=== PATIENT | female | born 1955 | race Two or more races ===

== ENCOUNTER 2018-11-28 09:53 | Emergency (ER) | payer OTHER | END 2018-11-28 12:30 | disposition home or self-care (01) | LOC: JERFT 09:53 ==

== ENCOUNTER 2019-01-28 09:09 | Emergency (ER) | payer OTHER | END 2019-01-28 12:40 | disposition home or self-care (01) | LOC: JER 09:09 ==

== ENCOUNTER 2019-02-22 10:05 | Day surgery (SDC) | payer OTHER ==
[2019-02-20 12:01] VITALS: BMI 22.8
[2019-02-22] MEDS ORDERED: MIDAZOLAM HCL 2 MG/2 ML SINGLE DOSE VIAL ONE (12:03)
[2019-02-22] MEDS ORDERED: BUPIVACAINE LIPOSOME/PF (EXPAREL) 266 MG/20 ML VIAL ONE (12:03)
--- NOTE | 2019-02-22 12:32 | OP ---
Operative Note - Note: Operative Date: 02/22/19 Pre-Operative Diagnosis: LEft knee arthrofibrosis Operation: LICHA left knee Post-Operative Diagnosis: Same as Pre-op Surgeon: Sergio Mayer Anesthesiologist/NETWORK OPERATIONS LEAD: Heriberto Leslie Anesthesia: General Operative Report Dictated: Yes
--- NOTE | 2019-02-22 12:32 | DS ---
Physical Examination Vital Signs: Vital Signs Temperature 98.3 F 02/22/19 10:51 Pulse Rate 90 02/22/19 10:51 Respiratory Rate 16 02/22/19 10:51 Blood Pressure 137/66 02/22/19 10:51 O2 Sat by Pulse Oximetry (%) 98 02/22/19 10:51 Discharge Summary Reason For Visit: ARTHROFIBROSIS LEFT KNEE Condition: Good - Instructions Diet, Activity, Other Instructions: Try and take advantage of the block and work on your range of motion throughout the day and this evening. There is a prescription for pain medicine at your pharmacy if it is needed. Please start your physical therapy ALO. Please work on getting the knee straight throughout the day. This is very critical to the success of your knee replacement. Please continue to work on your range of motion throughout the day and evening for the next few weeks. We want to minimize the risk of the knee becoming stiff again. Please call my admissions assistant for a followup appointment to see me in one month. Disposition: HOME - Home Medications Comprehensive Discharge Medication List: Ambulatory Orders Insulin Glargine,Hum.rec.anlog [Lantus (10mL VIAL) -] 14 units SQ HS 05/06/15 Sitagliptin Phos/Metformin HCl [Janumet 50-500 mg Tablet] 1 tab PO BID 05/06/15 Aspirin [ASA -] 81 mg PO DAILY 02/20/19 Carvedilol [Coreg] 6.25 mg PO DAILY 02/20/19 Losartan Potassium 50 mg PO DAILY 02/20/19
[2019-02-22] MEDS ORDERED: SODIUM CHLORIDE 0.9% P/F 10 ML VIAL IJ ONE (12:41)
[2019-02-22] MEDS ORDERED: PROPOFOL 20 ML ONE ×2 (12:48)
[2019-02-22] MEDS ORDERED: ONDANSETRON 4 MG/2 ML VIAL IVPUSH PRN (13:38)
[2019-02-22] MEDS ORDERED: oxyCODONE HCL 5 MG TABLET PO PRN ×2 (13:38)
[2019-02-22] MEDS ORDERED: LACTATED RINGERS SOLUTION 1,000 ML IV SCH (13:45)
[2019-02-22 14:18] VITALS: TEMP 97.9
[2019-02-22 15:14] VITALS: BP 132/75
[2019-02-22 15:18] VITALS: PULSE 74
== END 2019-02-22 14:50 | disposition home or self-care (01) ==
LOC: FASU 10:05
PROVIDERS: ATTEND Orthopaedic Surgery
PROC: 0SNDXZZ Release Left Knee Joint, External Approach (ICD-10-PCS; principal; 2019-02-22 12:50)
DX: M24.662 Ankylosis, left knee (principal)
CPT/HCPCS: 82962; 94760

== ENCOUNTER 2020-04-15 17:42 | Emergency (ER) | payer OTHER ==
[2020-04-15] MEDS ORDERED: DIPHTH,PERTUSS(ACELL),TET 0.5 ML DISP.SYRIN IM ONE ×2 (17:49→18:00)
--- NOTE | 2020-04-15 17:49 | PDOC ---
Rapid Medical Evaluation Time Seen by Provider: 04/15/20 17:46 Medical Evaluation: Allergies Allergy/AdvReac Type Severity Reaction Status Date / Time No Known Allergies Allergy Verified 11/28/18 10:29 04/15/20 17:46 I performed a brief in-person evaluation of this patient. Pt is a 64 y/o female with a R middle finger on a mandolin. States she sliced her nail and bleeding has been nonstop. Pt is on ASA. H/o DM. Unknown tetanus but states it was within the last 10 years. Pertinent physical exam findings: R middle finger with distal tip with a saturated bandage. Sensation intact distally. I have ordered the following: XR, Boostrix Patient to proceed to ED for further evaluation. Discharge Disposition - Diagnosis Laceration of finger, right - Referrals - Patient Instructions - Post Discharge Activity
[2020-04-15 17:55] VITALS: BP 106/76; PULSE 91; TEMP 98.1; BMI 23.2
--- NOTE | 2020-04-15 18:10 | PDOC ---
History of Present Illness - General Chief Complaint: Laceration Stated Complaint: LACERATION- RH Time Seen by Provider: 04/15/20 17:46 - History of Present Illness Initial Comments: 04/15/20 18:06 64-year-old female takes daily aspirin presents for evaluation of a laceration on her right middle finger. Patient was cutting a cucumber with a mandolin when she avulsed her nail and part of her cuticle and nail bed. Past History - Medical History Allergies/Adverse Reactions: Allergies Allergy/AdvReac Type Severity Reaction Status Date / Time No Known Allergies Allergy Verified 11/28/18 10:29 Home Medications: Ambulatory Orders Insulin Glargine,Hum.rec.anlog [Lantus (10mL VIAL) -] 14 units SQ HS 05/06/15 Sitagliptin Phos/Metformin HCl [Janumet 50-500 mg Tablet] 1 tab PO BID 05/06/15 Aspirin [ASA -] 81 mg PO DAILY 02/20/19 Carvedilol [Coreg] 6.25 mg PO DAILY 02/20/19 Losartan Potassium 50 mg PO DAILY 02/20/19 Anemia: No Asthma: No Cancer: No Cardiac Disorders: No CVA: No COPD: No CHF: No Dementia: No Diabetes: Yes GI Disorders: No Disorders: No HTN: Yes Hypercholesterolemia: No Liver Disease: No Seizures: No Thyroid Disease: No - Surgical History Abdominal Surgery: No Appendectomy: Yes Cardiac Surgery: No Cholecystectomy: No Lung Surgery: No Neurologic Surgery: No Orthopedic Surgery: Yes (LEFT KNEE REPLACEMENT 01/16/2019,RIGHT KNEE ARTHOSCOPY) - Reproductive History Is Patient Now?: No - Immunization History Immunization Up to Date: No - Psycho-Social/Smoking History Smoking History: Never smoked Have you smoked in the past 12 months: No Information on smoking cessation initiated: No - Substance Abuse Hx (Audit-C & DAST Scrn) How often the patient has a drink containing alcohol: Never Score: In Men: 4 or > Positive; In Women: 3 or > Positive: 0 Screen Result (Pos requires Nsg. Audit-10AR): Negative In the last yr the pt used illegal drug/Rx for NonMed reason: No Score: Yes response is considered Positive: 0 Screen Result (Positive result requires Nsg. DAST-10): Negative Review of Systems - Review of Systems Musculoskeletal: Yes: See HPI *Physical Exam - Vital Signs Last Vital Signs Temp Pulse Resp BP Pulse Ox 98.1 F 91 H 18 106/76 100 04/15/20 17:47 04/15/20 17:47 04/15/20 17:47 04/15/20 17:47 04/15/20 17:47 - Physical Exam 04/15/20 18:06 The area was copiously washed with soap and water Surgicel dressing applied bleeding was stopped ED Treatment Course - Medications Given in the ED: ED Medications Discontinued Medications Generic Name Dose Route Start Last Admin Trade Name Verenice PRN Reason Stop Dose Admin Diphtheria/Tetanus/Acell Pertussis 0.5 ml 04/15/20 17:49 04/15/20 18:02 Boostrix - IM 04/15/20 17:50 0.5 ml .ONCE ONE Administration Medical Decision Making - Medical Decision Making 04/15/20 18:06 Keep the dressing on for 48 hours and follow-up with orthopedic hand surgery I have reviewed the pathophysiology with the patient. They are in agreement with the treatment plan all questions were answered to their satisfaction. Understanding for follow-up without fail was also conveyed to the patient. Again they are in agreement. Discharge - Discharge Information Problems reviewed: Yes Clinical Impression/Diagnosis: Soft tissue avulsion Clinical Impression/Diagnosis: (Ruled Out): Laceration of finger, right Condition: Stable Disposition: HOME - Admission No - Follow up/Referral Referrals: ON STAFF,NOT [Primary Care Provider] - Sigifredo Kolb MD [Staff Physician] - - Patient Discharge Instructions Additional Instructions: Please keep the dressing on for 48 hours. After 48 hours you may remove the dressing and gently wash with soap and water. Do not peel off the material that is on the tip of your finger. It will fall off by itself. Do not soak it in water. Keep it open to air. Without fail follow-up with orthopedic hand surgery in 1 to 2 days for further evaluation and treatment options and return to the emergency room should you have further issues. If you are unable to get an appointment with orthopedic hand surgery you must return to the emergency room in 48 hours for wound check sooner if problems develop. - Post Discharge Activity
== END 2020-04-15 18:19 | disposition home or self-care (01) ==
LOC: JERFT 17:42
PROC: 3E0234Z Introduction of Serum, Toxoid and Vaccine into Muscle, Percutaneous Approach (ICD-10-PCS; principal; 2020-04-15)
DX: S61.210A Laceration without foreign body of right index finger without damage to nail, initial encounter (principal)
CPT/HCPCS: 90715; 99284-25

== ENCOUNTER 2020-04-18 09:15 | Emergency (ER) | payer OTHER ==
[2020-04-18 09:30] VITALS: BP 131/57; PULSE 86; TEMP 98.6; BMI 24.5
--- OUTSIDE RECORDS SUMMARY | 2020-04-18 09:30 | XMS ---
:1955 [facility] Care Team Providers Name Role Phone XU ALCANTARA Unavailable Unavailable ERIKA NGO Unavailable Unavailable Bekah, Dariana Brit Unavailable Unavailable Bekah, Brit Unavailable Unavailable Bekah, Brit Unavailable Unavailable Bekah, Brit Unavailable Unavailable Bekah, Brit Unavailable Unavailable Bekah, Brit Unavailable Unavailable LEFKOVITZ, ELLE Unavailable Unavailable MIKE, ARIF Unavailable Unavailable Re-disclosure Warning The records that you are about to access may contain information from federally- assisted alcohol or drug abuse programs. If such information is present, then the following federally mandated warning applies: This information has been disclosed to you from records protected by federal confidentiality rules (42 CFR part 2). The federal rules prohibit you from making any further disclosure of this information unless further disclosure is expressly permitted by the written consent of the person to whom it pertains or as otherwise permitted by 42 CFR part 2. A general authorization for the release of medical or other information is NOT sufficient for this purpose. The Federal rules restrict any use of the information to criminally investigate or prosecute any alcohol or drug abuse patient.The records that you are about to access may contain highly sensitive health information, the redisclosure of which is protected by Article 27-F of the [facility] Public Health law. If you continue you may haveaccess to information: Regarding HIV / AIDS; Provided by facilities licensed or operated by the [facility] Office of Mental Health; or Provided by the [facility] Office for People With Developmental Disabilities. If such information is present, then the following [facility] mandated warning applies: This information has been disclosed to you from confidential records which are protected by state law. State law prohibits you from making any further disclosure of this information without the specific written consent of the person to whom it pertains, or as otherwise permitted by law. Any unauthorized further disclosure in violation of state law may result in a fine or long term sentence or both. A general authorization for the release of medical or other information is NOT sufficient authorization for further disclosure. Encounters Encounter Providers Location Date Indications Data Source(s ) Outpatient Attender: 02/04/2020 M81.0 [facility] [place] MEHTA, 06:00:00 [facility] ZVIAdmitter: [employer] ELLE MEHTA M81.0 Outpatient Attender: TYSON 06/24/2019 06:00:00 Z12.31 [facility] ZVIAdmitter: NABILA MEHTA [facility] ZVIReferrer: Anthony MCKEON oration ARI Z12.31 Outpatient Attender: JENI 06/13/2019 10:02:00 M17.0 [facility] ERIKAAdmitter: [employer] [facility] Matt MEHTAerrer: Mayuri orERIKA Cifuentes M17.0 Outpatient Attender: Dariana 02/13/2019 06:00:00 [facility] MenonAttender: ED [employer] taryn ALCANTARA, Corpora tion JOSEAdmitter: Dariana Godfrey Insurance Providers Payer name Policy type Policy ID Covered Covered alliance party's Policy P can / Coverage alliance party ID relationship to Reyes Inf ormation type reyes [employer] [place] DUAL [id number] SP [id number] COMPLETE MEDICAID [id number] SP [id number] [facility] DUAL [id number] SP [id number] COMPLETE Problems, Conditions, and Diagnoses Code Display Name Description Problem Type Effective Data Sour ce(s) Dates M81.0 Age-related AGE-RELATED Diagnosis 02/04/2020 [place] osteoporosis OSTEOPOROSIS W/O 06:00:00 AM [facility] y Health without current CURRENT EDT Care pathological PATHOLOGICAL Corporatio n fracture FRACTURE Z12.31 Encounter for ENCNTR SCREEN Diagnosis 06/24/2019 [facility] screening mammogram MAMMOGRAM FOR 06:00:00 AM C [employer] for malignant MALIGNANT NEOPLASM EST Car e neoplasm of breast OF BREAST Corpor ation M17.0 Bilateral primary BILATERAL PRIMARY Diagnosis 06/13/2019 [place] osteoarthritis of OSTEOARTHRITIS OF 10:02:00 AM [facility] knee KNEE [employer] Results ID Date Data Source [id number] 01/09/2020 12:00:00 AM EDT [facility] Name Value Range Interpretation Code Description Data Elvia rce(s) Supporting Document(s ) COV2 [facility] This lab was ordered by [facility] [place] and reported by [facility] - [place]. Procedure
--- NOTE | 2020-04-18 10:08 | PDOC ---
Suture Removal/Wound Check HPI - History of Present Illness Chief Complaint: Revisit,Wound Recheck Stated Complaint: FOLLOW UP FOR FINGER Time Seen by Provider: 04/18/20 09:38 History Source: Yes: Patient Exam Limitations: Yes: No Limitations [facility] Date of Last ED visit: 04/15/20 - Previous ED Treatment Type of procedure performed on last visit: Yes: Laceration Repair Antibiotics Prescribed: No Past History - Medical History Allergies/Adverse Reactions: Allergies Allergy/AdvReac Type Severity Reaction Status Date / Time No Known Allergies Allergy Verified 04/18/20 09:19 Home Medications: Ambulatory Orders Insulin Glargine,Hum.rec.anlog [Lantus (10mL VIAL) -] 14 units SQ HS 05/06/15 Sitagliptin Phos/Metformin HCl [Janumet 50-500 mg Tablet] 1 tab PO BID 05/06/15 Aspirin [ASA -] 81 mg PO DAILY 02/20/19 Carvedilol [Coreg] 6.25 mg PO DAILY 02/20/19 Losartan Potassium 50 mg PO DAILY 02/20/19 Anemia: No Asthma: No Cancer: No Cardiac Disorders: No CVA: No COPD: No CHF: No Dementia: No Diabetes: Yes GI Disorders: No Disorders: No HTN: Yes Hypercholesterolemia: No Liver Disease: No Seizures: No Thyroid Disease: No - Surgical History Abdominal Surgery: No Appendectomy: Yes Cardiac Surgery: No Cholecystectomy: No Lung Surgery: No Neurologic Surgery: No Orthopedic Surgery: Yes (LEFT KNEE REPLACEMENT 01/16/2019,RIGHT KNEE ARTHOSCOPY) - Immunization History Immunization Up to Date: No - Psycho-Social/Smoking History Smoking History: Never smoked Have you smoked in the past 12 months: No - Substance Abuse Hx (Audit-C & DAST Scrn) How often the patient has a drink containing alcohol: Never Score: In Men: 4 or > Positive; In Women: 3 or > Positive: 0 Screen Result (Pos requires Nsg. Audit-10AR): Negative Suture Removal/Wound Check PE - Physical Exam Laceration/Wound Check Symptoms: reports: None Current Severity Level: None Maximum Severity Level: None Pain Localization: None Location of Laceration/Wound: right: Finger (Middle) Pain Radiation: None *Review of Systems - Review of Systems Able to Perform ROS?: Yes All Other Systems: Reviewed and Negative *Physical Exam - Vital Signs Last Vital Signs Temp Pulse Resp BP Pulse Ox 98.6 F 86 18 131/57 L 100 04/18/20 09:20 04/18/20 09:20 04/18/20 09:20 04/18/20 09:20 04/18/20 09:20 - Physical Exam Musculoskeletal: positive: Other (Surgicel dressing in place. Surgicel removed and nailbed healing well. No discharge or drainage is present. Wound is beefy red. No lymphangitis is noted.) Medical Decision Making - Medical Decision Making 04/18/20 10:11 A/P: 64-year-old woman with visit for wound check Surgicel dressing in place Surgicel removed and wound appears well. Dry sterile dressing replaced on wound and patient was instructed to follow-up with the orthopedist as previously scheduled. Patient states she was unable to follow-up with orthopedist as they did not take her insurance and no referral was provided. Portions of this note have been documented using voice recognition software. As a result, errors may occur in the information systems technician process. Effort has been made to correct all grammatical and information systems technician error, but some may have been missed which may produce sporadic inaccurate information systems technician or nonsensical phrases. Discharge - Discharge Information Problems reviewed: Yes Clinical Impression/Diagnosis: Encounter for wound re-check Condition: Stable Disposition: HOME - Admission No - Follow up/Referral Referrals: ON STAFF,NOT [Primary Care Provider] - Nader Han MD [Staff Physician] - - Patient Discharge Instructions Additional Instructions: [email or web address] You be given a referral for an orthopedist. Call to schedule appointment for r eevaluation of your pain. Your emergency department visit is incomplete until you follow-up with your regular doctor. Take Tylenol 2-500 mg tablets every 6 hours as needed for pain. Take Motrin 3-200 mg tablets every 6 hours as needed for pain. These medications do not require a prescription as they are [id number]. Return to the emergency department for any new or worsening symptoms. Thank you very much for choosing us to provide your emergent health care needs. - Post Discharge Activity
== END 2020-04-18 11:20 | disposition home or self-care (01) ==
LOC: JERFT 09:15 → JER 09:15 → JERFT 11:20
DX: Z48.00 Encounter for change or removal of nonsurgical wound dressing (principal)
CPT/HCPCS: 99282-25

== ENCOUNTER 2020-11-26 04:40 | Day surgery (SDC) | payer OTHER ==
[2020-11-24 16:05] VITALS: BMI 24.3
[2020-11-26 10:13] VITALS: TEMP 97.5
[2020-11-26 11:11] VITALS: BP 108/66; PULSE 77
== END 2020-11-26 11:16 | disposition home or self-care (01) ==
LOC: JASU-ENDO 04:40
PROVIDERS: ATTEND Internal Medicine Gastroenterology
PROC: 0DJD8ZZ Inspection of Lower Intestinal Tract, Via Natural or Artificial Opening Endoscopic (ICD-10-PCS; principal; 2020-11-26 10:00)
DX: Z12.11 Encounter for screening for malignant neoplasm of colon (principal); Z86.010 Personal history of colon polyps; K64.8 Other hemorrhoids; K57.30 Diverticulosis of large intestine without perforation or abscess without bleeding

== ENCOUNTER 2022-09-04 12:25 | Observation (INO) | payer OTHER ==
[2022-09-04 12:52] VITALS: BMI 24.3
[2022-09-04] MEDS ORDERED: FAMOTIDINE 20 MG/50 ML IVPB 20 MG/50 ML MG IVPB ONE (13:34)
[2022-09-04] MEDS ORDERED: MAG HYDROX/AL HYDROX/SIMETH 30 ML UNIT-DOSE CUP PO ONE (13:34)
[2022-09-04] MEDS ORDERED: MAG HYDROX/AL HYDROX/SIMETH 30 ML UNIT-DOSE CUP ONE (13:54)
[2022-09-04] MEDS ORDERED: FAMOTIDINE 10 MG/ML VIAL IVPB ONE (13:55)
[2022-09-04 14:32] LABS: BASO % 0.6 % (0-2.0); EOS % 2.4 % (0-4.5); HEMATOCRIT 39.1 % (32.4-45.2); HEMOGLOBIN 12.8 GM/dL (10.7-15.3); LYMPH % 28.5 % (8-40); MCH 26.6 pg (25.7-33.7); MCHC 32.9 g/dl (32.0-36.0); MEAN CELL VOLUME 80.9 fl (80-96); MEAN PLT VOLUME 8.5 fl (7.5-11.1); MONO % 5.3 % (3.8-10.2); NEUT % 63.2 % (42.8-82.8); PLATELET COUNT 167 10^3/uL (134-434); RBC 4.83 M/mm3 (3.60-5.2); RDW 13.9 % (11.6-15.6); WHITE BLOOD COUNT 6.2 K/mm3 (4.0-10.0)
[2022-09-04 14:37] LABS: INR 1.05 (0.83-1.09); PROTHROMBIN TIME (PATIENT) 12.2 SEC (9.7-13.0)
[2022-09-04 14:40] LABS: ACTIVATED PTT 27.5 SECONDS (25.2-36.5)
[2022-09-04 14:50] LABS: POTASSIUM 4.9 mmol/L (3.5-5.1)
[2022-09-04 14:52] LABS: CALCIUM 9.2 mg/dL (8.5-10.1)
[2022-09-04 14:53] LABS: ALBUMIN 3.7 g/dl (3.4-5.0); BLOOD UREA NITROGEN 15.2 mg/dL (7-18)
[2022-09-04 14:56] LABS: CREATININE 0.8 mg/dL (0.55-1.3)
[2022-09-04 14:57] LABS: BILIRUBIN,TOTAL 0.4 mg/dL (0.2-1)
[2022-09-04 14:58] LABS: TOT PROT 7.5 g/dl (6.4-8.2)
[2022-09-04 15:00] LABS: N-TERMINAL BNP 53.6 pg/ml (5-125)
[2022-09-04] MEDS: INSULIN SLIDING SCALE (NOVOLOG) 1 VIAL SQ SCH (16:16)
[2022-09-04] MEDS: HEPARIN NA (PORCINE) 5,000 UNITS/ML 1ML VIAL SQ SCH (21:56)
[2022-09-04] MEDS ORDERED: INSULIN (LEVEMIR) 100 UNITS/ML UNITS SQ SCH (22:00)
[2022-09-05] MEDS: INSULIN SLIDING SCALE (NOVOLOG) 1 VIAL SQ SCH ×3 (06:25→17:02)
[2022-09-05 08:30] LABS: BASO % 0.5 % (0-2.0); EOS % 3.5 % (0-4.5); HEMATOCRIT 40.1 % (32.4-45.2); HEMOGLOBIN 13.1 GM/dL (10.7-15.3); LYMPH % 33.1 % (8-40); MCH 26.6 pg (25.7-33.7); MCHC 32.7 g/dl (32.0-36.0); MEAN CELL VOLUME 81.2 fl (80-96); MEAN PLT VOLUME 8.8 fl (7.5-11.1); MONO % 5.7 % (3.8-10.2); NEUT % 57.2 % (42.8-82.8); PLATELET COUNT 164 10^3/uL (134-434); RBC 4.94 M/mm3 (3.60-5.2); RDW 13.9 % (11.6-15.6); WHITE BLOOD COUNT 6.2 K/mm3 (4.0-10.0)
[2022-09-05] MEDS ORDERED: REGADENOSON 0.4 MG/5 ML PRE-FILLED SYRINGE IVPUSH ONE ×2 (09:09→09:15)
[2022-09-05] MEDS ORDERED: FAMOTIDINE 20 MG TABLET PO SCH (10:00)
[2022-09-05] MEDS ORDERED: CARVEDILOL 6.25 MG TABLET (FP) PO SCH ×2 (10:00→22:00)
[2022-09-05] MEDS ORDERED: LOSARTAN POTASSIUM 50 MG TABLET PO SCH (10:00)
[2022-09-05] MEDS ORDERED: ASPIRIN 81 MG CHEWABLE TABLETS PO SCH (10:00)
[2022-09-05] MEDS: HEPARIN NA (PORCINE) 5,000 UNITS/ML 1ML VIAL SQ SCH (12:26)
[2022-09-05 14:48] LABS: BLOOD UREA NITROGEN 13.4 mg/dL (7-18); CALCIUM 9.2 mg/dL (8.5-10.1)
[2022-09-05 14:52] LABS: CREATININE 0.7 mg/dL (0.55-1.3)
[2022-09-05 15:11] VITALS: BP 114/68; PULSE 77; RESP 20; TEMP 98.2
== END 2022-09-05 17:25 | disposition home or self-care (01) ==
LOC: JER 12:25 → JERBED 13:39 → J4W 20:26
PROVIDERS: ADMIT Internal Medicine; ATTEND Internal Medicine
PROC: 3E023GC Introduction of Other Therapeutic Substance into Muscle, Percutaneous Approach (ICD-10-PCS; principal; 2022-09-04)
PROC: 3E013VG Introduction of Insulin into Subcutaneous Tissue, Percutaneous Approach (ICD-10-PCS; 2022-09-04)
PROC: 3E033GC Introduction of Other Therapeutic Substance into Peripheral Vein, Percutaneous Approach (ICD-10-PCS; 2022-09-04)
DX: R07.89 Other chest pain (principal); R77.8 Other specified abnormalities of plasma proteins; E11.9 Type 2 diabetes mellitus without complications; I10 Essential (primary) hypertension; E78.5 Hyperlipidemia, unspecified; Z96.652 Presence of left artificial knee joint; Z82.49 Family history of ischemic heart disease and other diseases of the circulatory system
CPT/HCPCS: 0241U-QW; 36415; 71045-TC-FY; 78452-TC; 80048; 80053; 82962; 83880; 84484; 85025; 85610; 85730; 93005; 93010; 93017; 93306-TC; 96365; 96372; 96375; 99291; A9502; G0378; J1644; J2785

== ENCOUNTER 2022-11-25 04:08 | Day surgery (SDC) | payer OTHER ==
[2022-11-18 15:43] VITALS: BMI 23.8
[~2022-11-25 04:08] MED LIST: LIDOCAINE HCL 1%, 10 MG/ML (20ML VIAL) NR ONE
[2022-11-25] MEDS ORDERED: LIDOCAINE HCL 1%, 10 MG/ML (10ML VIAL) MDV ONE (07:20)
[2022-11-25] MEDS ORDERED: GENTAMICIN SO4 80 MG/2 ML VIAL ONE (07:20)
[2022-11-25] MEDS ORDERED: BUPIVACAINE HCL/PF 0.5% (5MG/ML) 10 ML VIAL ONE (07:21)
[2022-11-25] MEDS ORDERED: SUCCINYLCHOLINE CHLORIDE 200 MG/10 ML SYRINGE ONE (07:22)
[2022-11-25] MEDS ORDERED: PROPOFOL 60 ML ONE (07:22)
[2022-11-25] MEDS ORDERED: MIDAZOLAM HCL 2 MG/2 ML SINGLE DOSE VIAL ONE (08:10)
[2022-11-25] MEDS ORDERED: ceFAZolin SODIUM 1 GM VIAL IVPB ONE (08:15)
[2022-11-25] MEDS ORDERED: LIDOCAINE HCL 1%, 10 MG/ML (20ML VIAL) NR ONE ×3 (08:20)
[2022-11-25] MEDS ORDERED: BUPIVACAINE HCL/PF 0.5% (5MG/ML) 10 ML VIAL IJ ONE ×2 (08:20→09:02)
[2022-11-25] MEDS ORDERED: ONDANSETRON 4 MG/2 ML VIAL ONE (08:32)
[2022-11-25] MEDS ORDERED: ceFAZolin SODIUM 1 GM VIAL ONE (08:32)
[2022-11-25] MEDS ORDERED: TRIAMCINOLONE ACET 40MG/1ML VIAL ONE (09:00)
[2022-11-25] MEDS ORDERED: TRIAMCINOLONE ACET 40MG/1ML VIAL IM ONE (09:02)
[2022-11-25 09:43] VITALS: RESP 16; TEMP 97.1
[2022-11-25 10:43] VITALS: BP 130/70; PULSE 70
== END 2022-11-25 10:10 | disposition home or self-care (01) ==
LOC: JASU-SURG 04:08
PROVIDERS: ATTEND Podiatrist Foot Surgery
PROC: 0HBRXZX Excision of Toe Nail, External Approach, Diagnostic (ICD-10-PCS; principal; 2022-11-25 08:00)
DX: L60.0 Ingrowing nail (principal)
CPT/HCPCS: 82962; 88305-TC; 88311-TC

== ENCOUNTER 2023-08-01 08:14 | Emergency (ER) | payer OTHER ==
[2023-08-01 08:21] VITALS: BP 157/65; PULSE 89; RESP 16; TEMP 98; BMI 24.3
[2023-08-01] MEDS ORDERED: LIDOCAINE 4% PATCH TP ONE ×2 (12:02→12:19)
[2023-08-01] MEDS ORDERED: LIDOCAINE PATCH REMOVAL MC SCH (22:00)
== END 2023-08-01 12:23 | disposition home or self-care (01) ==
LOC: JER 08:14
DX: S40.012A Contusion of left shoulder, initial encounter (principal); S09.90XA Unspecified injury of head, initial encounter; M25.512 Pain in left shoulder; W01.0XXA Fall on same level from slipping, tripping and stumbling without subsequent striking against object, initial encounter
CPT/HCPCS: 70450-TC; 71046-TC-FY; 72125-TC; 73030-TC-LT-FY; 99284-25

== ENCOUNTER 2024-04-11 04:05 | Day surgery (SDC) | payer OTHER ==
[2024-04-09 16:44] VITALS: BMI 24.3
[2024-04-11] MEDS ORDERED: DEXAMETHASONE SOD PHOSPHATE 10 MG/1 ML VIAL ONE (07:11)
[2024-04-11] MEDS ORDERED: LIDOCAINE HCL/PF 1% SDV 5ML VIAL ONE (07:11)
[2024-04-11 09:14] VITALS: RESP 20
[2024-04-11] MEDS ORDERED: ACETAMINOPHEN 500 MG TABLET (FP) PO PRN (09:14)
[2024-04-11] MEDS: DEXAMETHASONE SOD PHOSPHATE 10 MG/1 ML VIAL IVPUSH ONE (11:04)
[2024-04-11] MEDS: IOHEXOL 180 MG/1 ML ML IJ ONE (11:04)
[2024-04-11] MEDS: LIDOCAINE HCL 1% PRESERVATIVE FREE - 30ML VIAL IJ ONE (11:04)
[2024-04-11 11:25] VITALS: BP 134/69; PULSE 67; TEMP 97.3
== END 2024-04-11 11:40 | disposition home or self-care (01) ==
LOC: JASU-SURG 04:05
PROVIDERS: ATTEND Pain Medicine Pain Medicine
PROC: 3E0R3BZ Introduction of Anesthetic Agent into Spinal Canal, Percutaneous Approach (ICD-10-PCS; 2024-04-11)
PROC: 3E0R33Z Introduction of Anti-inflammatory into Spinal Canal, Percutaneous Approach (ICD-10-PCS; principal; 2024-04-11 10:45)
DX: M54.16 Radiculopathy, lumbar region (principal); M48.061 Spinal stenosis, lumbar region without neurogenic claudication
CPT/HCPCS: 76000-TC-FY; J1100